=== PATIENT | female | born 1955 | race Caucasian/White ===

== ENCOUNTER 2024-08-27 10:00 | Day surgery (SDC) | payer MEDICARE, OTHER ==
[~2024-08-27 10:00] MED LIST: Sodium Chloride 0.9% 10 ML Syringe FLUSH PRN; Sodium Chloride 0.9% 10 ML Syringe FLUSH SCH
[2024-08-27] MEDS ORDERED: Midazolam 1 MG/ML 2 ML SDV ONE (10:28)
[2024-08-27] MEDS ORDERED: Ondansetron 4 MG/2 ML SDV ONE (10:28)
[2024-08-27] MEDS ORDERED: Propofol 200 MG/20 ML SDV ONE (10:28)
[2024-08-27] MEDS ORDERED: Phenylephrine 1% 10 MG/ML SDV ONE (10:30)
[2024-08-27] MEDS: Acetaminophen 325 MG Tab PO ONE (10:50)
[2024-08-27] MEDS: Lactated Ringers 1,000 ML IV SCH (10:50)
[2024-08-27] MEDS: Pregabalin 25 MG Cap PO ONE (10:51)
[2024-08-27] MEDS: oxyCODONE ER 10 MG TAB.ER PO ONE (10:51)
[2024-08-27] MEDS ORDERED: ceFAZolin 2 GM Vial ONE (11:17)
[2024-08-27] MEDS ORDERED: Dexamethasone 4 MG/ML 5 ML MDV ONE (11:46)
[2024-08-27] MEDS ORDERED: Ropivacaine 0.5% 5 MG/ML 30 ML SDV ONE (11:46)
[2024-08-27] MEDS ORDERED: dexmedeTOMIDine HCl 200 MCG/2 ML SDV ONE (11:46)
[2024-08-27] MEDS ORDERED: fentaNYL 100 MCG/2 ML SDV IVPUSH PRN (12:02)
[2024-08-27] MEDS ORDERED: HYDROmorphone 0.5 MG/0.5 ML Syringe IVPUSH PRN (12:03)
[2024-08-27] MEDS: Morphine 8 MG, EPINEPHrine 0.3 MG, Cefuroxime 750 MG, Ketorolac 30 MG, Sodium Chloride ... PRN (12:12)
[2024-08-27] MEDS: Vancomycin 1 GM SDV ONE (12:18)
[2024-08-27] MEDS: Tranexamic Acid 1,000 MG/10 ML Vial ONE (12:18)
[2024-08-27] MEDS: Bupivacaine 0.25% 10 ML SDV ONE (12:35)
[2024-08-27] MEDS: Triamcinolone Acetonide 40 MG/ML 1 ML SDV ONE (12:35)
[2024-08-27] MEDS: oxyCODONE 5 MG Tab PO PRN (13:39)
[2024-08-27] MEDS: Ketorolac 30 MG/ML SDV IVPUSH ONE (14:20)
== END 2024-08-27 18:05 | disposition home or self-care (01) ==
LOC: JD.SDS 10:00
PROVIDERS: ATTEND Orthopaedic Surgery
DX: M17.0 Bilateral primary osteoarthritis of knee (principal); E03.9 Hypothyroidism, unspecified; Z79.890 Hormone replacement therapy; Z79.899 Other long term (current) drug therapy
CPT/HCPCS: 0055T; 20610; 27447; 64447; 73560; 97110; 97116; 97161; A9270; C1713; C1776; J0171; J0665; J0690; J0697; J1100; J1885; J2250; J2272; J2371; J2405; J2704; J2795; J3301; J7120; J3490

== ENCOUNTER 2025-03-21 07:57 | Day surgery (SDC) | payer MEDICARE, OTHER ==
[2025-03-21] MEDS: Lactated Ringers 1,000 ML IV SCH (08:30)
[2025-03-21] MEDS ORDERED: Propofol 200 MG/20 ML SDV ONE ×2 (08:32→09:24)
[2025-03-21] MEDS ORDERED: Sodium Chloride 0.9% 100 ML ONE (09:22)
== END 2025-03-21 10:57 | disposition home or self-care (01) ==
LOC: JD.SDS 07:57
PROVIDERS: ATTEND Surgery
DX: Z12.11 Encounter for screening for malignant neoplasm of colon (principal); K57.30 Diverticulosis of large intestine without perforation or abscess without bleeding; G47.30 Sleep apnea, unspecified; E89.0 Postprocedural hypothyroidism; Z86.0100 Personal history of colon polyps, unspecified; Z91.048 Other nonmedicinal substance allergy status
CPT/HCPCS: G0121; J2704; J7120